=== PATIENT | male | born 1955 | race Caucasian/White ===

== ENCOUNTER → 2016-08-17 | Outpatient (REF) | payer BC, MEDICARE ==
[2016-08-17 22:51] LABS: REASON FOR REVIEW COMPREHENSIVE REVIEW
== END ==
LOC: M LAB REF 16:34
PROVIDERS: ATTEND Internal Medicine Medical Oncology
DX: D75.1 Secondary polycythemia (principal)

== ENCOUNTER → 2017-08-03 | Outpatient (REF) | payer BC, MEDICARE ==
[2017-08-03 20:35] LABS: TESTOSTERONE 408 NG/DL (241-827)
[2017-08-03 20:38] LABS: PROSTATIC SPECIFIC AG MONITOR 0.55 NG/ML (< 4.0)
== END ==
LOC: M LAB REF 18:30
DX: D45 Polycythemia vera (principal)
CPT/HCPCS: 84403

== ENCOUNTER → 2021-08-04 | Outpatient (CLI) | payer BC, MEDICARE ==
[~2021-08-04] MED LIST: ASPI81TA26 PO; ATEN25TA PO; CARA1TAB6 PO; CLOP75TA2 PO; D31000TA2 PO; DOXA1TAB40 PO; EZET10TA21 PO; FENO135C6 PO; FISH1000 PO; FLUTISP INH; GAVICHW PO; INSUDET SC; LEVO50TA5 PO; MENSTAB5 PO; METF500T13 PO; METO5TAB2 PO; MOBI4TAB PO; MODA200T15 PO; MULT1TAB8 PO; NOVOINJ14 SQ; OMEP40CA5; OZEM2INJ SC; PANT40TA29 PO; PROB250C PO; SIMV20TA22 PO; SYNT50TA PO; TEST200I14 IM; TRUL10IN INJ; VASC1CAP2 PO; VENL75CA47 PO; VITA2000 PO; ZETI10TA16 PO
== END ==
LOC: M LABSMTC 09:17
PROVIDERS: ATTEND Anesthesiology
DX: Z01.818 Encounter for other preprocedural examination (principal); Z11.52 Encounter for screening for COVID-19

== ENCOUNTER 2021-08-08 08:34 | Day surgery (SDC) | payer BC, MEDICARE ==
[~2021-08-08] VITALS: Ht 182.9 cm; Wt 108.4 kg
[~2021-08-08 08:34] MED LIST changes: -D31000TA2 PO; +LIDOCAINE 2% 100MG/5ML SDV (FOR ANES.) As Ordered ONE; +NS 1,000 ML IV ONE; +VITA100093 PO; +propofoL 200 MG/20 ML VIAL As Ordered ONE
[2021-08-08 10:49] VITALS: BP 123/75
== END 2021-08-08 11:08 | disposition home or self-care (01) ==
LOC: M OPP 08:34
PROVIDERS: ATTEND Internal Medicine Gastroenterology
DX: Z12.11 Encounter for screening for malignant neoplasm of colon (principal); K64.0 First degree hemorrhoids; K31.89 Other diseases of stomach and duodenum; K21.9 Gastro-esophageal reflux disease without esophagitis; R12 Heartburn; Z79.4 Long term (current) use of insulin; Z79.82 Long term (current) use of aspirin; Z79.899 Other long term (current) drug therapy; Z88.8 Allergy status to other drugs, medicaments and biological substances; Z87.891 Personal history of nicotine dependence

== ENCOUNTER → 2022-07-13 | Outpatient (CLI) | payer BC, MEDICARE ==
[~2022-07-13] MED LIST changes: -LIDOCAINE 2% 100MG/5ML SDV (FOR ANES.) As Ordered ONE; -NS 1,000 ML IV ONE; +RANO500T2; -propofoL 200 MG/20 ML VIAL As Ordered ONE
[2022-07-13 15:38] LABS: HEMOGLOBIN 16.6 g/dl (13.5-17.5); MEAN CORPUSCULAR VOLUME 91.8 fl (80.0-96.0); RED BLOOD COUNT 5.34 10^6/uL (4.30-6.10); WHITE BLOOD COUNT 4.8 10^3/uL (4.0-10.0)
[2022-07-13 15:39] LABS: BASO % 0.6 % (0.0-1.0); EOS # 0.1 10^3/uL (0.0-0.5); EOS % 1.3 % (0.0-3.0); LYMPH # 1.2 10^3/uL (1.5-5.0); LYMPH % 25.6 % (24.0-44.0); MEAN CORPUSCULAR HEMOGLOBIN 31.1 pg (27.0-33.0); MEAN CORPUSCULAR HGB CONC 33.9 g/dl (32.0-36.5); MONO # 0.4 10^3/uL (0.0-0.8); MONO % 7.6 % (2.0-8.0); NEUTROPHILS # 3.1 10^3/uL (1.5-8.5); NEUTROPHILS % 64.7 % (36.0-66.0); PLATELET COUNT, AUTOMATED 124 10^3/uL (150-450)
[2022-07-13 16:01] LABS: C REACTIVE PROTEIN QUANTITATIV < 0.40 MG/DL (<1.0)
[2022-07-13 16:06] LABS: ERYTHROCYTE SEDIMENTATION RATE 11 mm/hr (0-20)
[2022-07-13 16:22] LABS: HEPATITIS B SURFACE ANTIGEN NEGATIVE (NEGATIVE)
[2022-07-13 16:43] LABS: HEPATITIS C VIRUS ABY INDEX < 0.0 INDEX (<0.8)
[2022-07-13 17:40] LABS: HEMOGLOBIN A1c 6.2 % (4.0-6.0)
== END ==
LOC: M PLALAB 12:55
PROVIDERS: ATTEND Internal Medicine Infectious Disease
DX: R53.82 Chronic fatigue, unspecified (principal); R16.2 Hepatomegaly with splenomegaly, not elsewhere classified

== ENCOUNTER → 2022-07-29 | Outpatient (REF) | payer BC, MEDICARE | LOC: M SFHCPLAZ 10:20 | PROVIDERS: ATTEND Nurse Practitioner Adult Health | DX: R16.2 Hepatomegaly with splenomegaly, not elsewhere classified (principal) ==

== ENCOUNTER → 2022-08-06 | Outpatient (REF) | payer MEDICARE, BC ==
[~2022-08-06] MED LIST changes: +CLOP75TA2; +EZET10TA21; +FISH100015 PO; +JANU100T
== END ==
LOC: M SFHCPLAZ 15:39
PROVIDERS: ATTEND Internal Medicine Infectious Disease
DX: K74.60 Unspecified cirrhosis of liver (principal)

== ENCOUNTER → 2024-03-28 | Outpatient (REF) | payer MEDICARE ==
[~2024-03-28] MED LIST changes: +EZET10TA58 PO; -ZETI10TA16 PO
[2024-03-28 19:28] LABS: EOS # 0.1 10^3/uL (0.0-0.5); EOS % 2.5 % (0.0-3.0); HEMATOCRIT 41.2 % (42.0-52.0); HEMOGLOBIN 14.5 g/dl (13.5-17.5); LYMPH # 1.6 10^3/uL (1.5-5.0); LYMPH % 38.9 % (24.0-44.0); MEAN CORPUSCULAR HEMOGLOBIN 31.4 pg (27.0-33.0); MEAN CORPUSCULAR HGB CONC 35.2 g/dl (32.0-36.5); MEAN CORPUSCULAR VOLUME 89.2 fl (80.0-96.0); MONO # 0.3 10^3/uL (0.0-0.8); MONO % 7.5 % (2.0-8.0); NEUTROPHILS % 49.8 % (36.0-66.0); PLATELET COUNT, AUTOMATED 123 10^3/uL (150-450); RED BLOOD COUNT 4.62 10^6/uL (4.30-6.10)
[2024-03-28 19:37] LABS: C REACTIVE PROTEIN QUANTITATIV < 0.40 MG/DL (<1.0)
[2024-03-28 19:39] LABS: ALBUMIN 3.9 G/DL (3.2-5.2); ALKALINE PHOSPHATASE 77 U/L (46-116); ALT/SGPT 71 U/L (7.0-40); AST/SGOT 49 U/L (<34); BILIRUBIN,DIRECT 0.3 MG/DL (<0.4); BILIRUBIN,TOTAL 1.2 MG/DL (0.3-1.2); BLOOD UREA NITROGEN 20 MG/DL (9-23); CALCIUM LEVEL 9.5 MG/DL (8.3-10.6); CARBON DIOXIDE LEVEL 26 MMOL/L (20-31); CHLORIDE LEVEL 106 MMOL/L (98-107); CREATININE FOR GFR 0.81 MG/DL (0.70-1.30); ERYTHROCYTE SEDIMENTATION RATE 17 mm/hr (0-20); GLOMERULAR FILTRATION RATE > 60.0 (>49); GLUCOSE, FASTING 157 MG/DL (74-106); POTASSIUM SERUM 4.3 MMOL/L (3.5-5.1); SODIUM LEVEL 139 MMOL/L (136-145); TOTAL PROTEIN 7.1 G/DL (5.7-8.2)
== END ==
LOC: M SFHCRHEU 12:02
PROVIDERS: ATTEND Internal Medicine
DX: M25.50 Pain in unspecified joint (principal)

== ENCOUNTER → 2024-03-28 | Outpatient (CLI) | payer MEDICARE | LOC: M RAD 12:28 | PROVIDERS: ATTEND Internal Medicine | DX: M16.0 Bilateral primary osteoarthritis of hip (principal) ==